=== PATIENT | female | born 1970 | race Caucasian/White ===

== ENCOUNTER → 2016-06-16 | Outpatient (CLI) | payer MEDICAID ==
[~2016-06-16] MED LIST: ADVIL200 MG PO; ALEVE; AMOXICILLIN 8751 TAB PO; ASPIRIN 81M81 MG/TA2 PO; B-12 100 MCG; BCP TD; BENADRYL; BUSPAR10 MG PO; CELEXA40 MG PO; CHERATUSSIN AC120 ML PO; CLARITIN 1010 MG/TAB PO; CLEOCIN HCL300 MG PO; COMBIVENT INH14.7 GM IH; EPA FISH OIL1000 MG PO; FLEXERIL 1010 MG/TAB PO; FLEXERIL10 MG PO; FLOVENT DI250 MCG/Ac IH; FORADIL AERO0.012 MG IH; GLUCOPHAGE500 MG/TAB PO; GUAIFEN AC 10120 ML PO; IBU400 MG PO; LEVAQUIN 750MG750 M1 PO; MULTIPLE VITAMI1 CAP PO; MVI; NAPROSYN500 MG PO; NIACIN1 TAB PO; NORCO 325 MG-51 TAB PO; ONE DAILY1 TA1 PO; PERCOCET 325 MG1 TA2 PO; PHENERGAN 25 TA25 MG PO; PREDNISONE20 MG PO; PRENATAL VITAMI1 TA5 PO; PRENATAL1 TA1 PO; PREVACID 15MG15 MG PO; PRILOTC PO; PROAIR HFA0.09 MG/AC IH; PROMETHAZINE V473 M2 PO; PROVENTIL0.09 MG/A1 IH; RT SPIRIVA18 MCG IH; SINGULAIR 110 MG/TAB PO; SUDAFED 30M30 MG/TAB PO; SUDAFED30 MG PO; SYMBICORT1 AE3 IH; TESSALON PERLE200 MG PO; TRAMADOL50 MG PO; TRIAMCINOLONE A15 G2 TP; TYLENOL 325MG325 MG PO; VENTOLIN0.09 MG IH; VITAMIN B122000 MCG PO; VITAMIN E1000 U/CAP PO; VITAMIN E200 I1 PO; ZITHROMAX TRI-500 MG PO; ZITHROMAX Z PA250 MG PO; ZOFRAN 4MG T4 MG/TAB PO; ZOLOFT 100MG100 MG PO; ZOLOFT 25MG25 MG PO; ZOLOFT 50MG50 MG PO; ZOLOFT100 MG PO; [UNRECOGNIZED DRUG - OTHER]
== END ==
LOC: COL.RAD 06-14 09:30 → COL.CARD 06-14 09:30 → COL.RAD 09:34
DX: M51.16 Intervertebral disc disorders with radiculopathy, lumbar region (principal)

== ENCOUNTER 2016-10-03 11:30 | Outpatient (RCR) | payer MEDICAID | END 2016-10-11 10:35 | disposition home or self-care (01) | LOC: WSPT 11:30 | DX: M54.5 Low back pain (principal) ==

== ENCOUNTER 2018-06-17 12:31 | Emergency (ER) | payer MEDICAID ==
[~2018-06-17] VITALS: Ht 160 cm; Wt 127.3 kg
[2018-06-17 13:14] LABS: BASO # 0.1 (0.0-0.2); BASO % 0.7 % (0.0-2.0); EOS # 0.3 (0.0-0.7); EOS % 3.3 % (0-4.0); GRAN # 4.7 (1.4-6.5); GRAN % 61.1 % (42.2-75.2); HEMATOCRIT 45.1 % (37.0-47.0); HEMOGLOBIN 14.9 g/dl (12.5-16.0); LYMPH # 2.2 (1.2-3.4); LYMPH % 28.4 % (20.0-51.0); MEAN CELL VOLUME 88 fl (80.0-100.0); MEAN CORPUSCULAR HEMOGLOBIN 29 pg (27.0-31.0); MEAN CORPUSCULAR HGB CONC 33 g/dl (33.0-37.0); MEAN PLATELET VOLUME 10.4 fl (7.4-10.4); MONO # 0.5 (0.1-0.6); MONO % 6.1 % (1.7-9.3); PLATELET COUNT 188 K/mm3 (130-400); RED BLOOD COUNT 5.13 M/mm3 (4.10-5.30); REDCELL DISTRIBUTION WIDTH-CV 12.7 % (11.5-14.5)
[2018-06-17 13:19] LABS: ALBUMIN 4.1 gm/dL (3.5-5.0); BILIRUBIN,TOTAL 0.3 mg/dL (0.0-1.0); CALCIUM 9.5 mg/dL (8.4-10.2); CREATININE, serum 0.62 mg/dL (0.52-1.25); POTASSIUM 4.1 mmol/L (3.4-5.0); TOTAL PROTEIN 7.5 gm/dL (6.4-8.2)
[2018-06-17 13:42] LABS: COLLECTION METHOD CLEAN CATCH
[2018-06-17 13:49] LABS: TSH w REFLEX 4.09 uIU/mL (0.465-4.680)
[2018-06-17 13:50] LABS: PH 6 (5-8); SQUAMOUS EPITHELIAL 0-2 /hpf; URINE APPEARANCE Clear; URINE BACTERIA None Seen /hpf; URINE BILIRUBIN Negative (NEGATIVE); URINE BLOOD Negative (NEGATIVE); URINE COLOR Yellow; URINE GLUCOSE Negative (NEGATIVE); URINE KETONE Negative (NEGATIVE); URINE LEUKOCYTE ESTERASE Negative (NEGATIVE); URINE NITRATE Negative (NEGATIVE); URINE PROTEIN(semi-quant) Negative (NEGATIVE); URINE RBC 0-2 /hpf; URINE UROBILINOGEN Negative (NEGATIVE); URINE WBC 0-2 /hpf
[2018-06-17 14:37] VITALS: BP 147/93; PULSE 78; TEMP 97.8
== END 2018-06-17 14:42 | disposition home or self-care (01) ==
LOC: COL.ER 12:31
PROVIDERS: Emergency Medicine
DX: R53.81 Other malaise (principal); E11.9 Type 2 diabetes mellitus without complications; Z90.49 Acquired absence of other specified parts of digestive tract; Z98.51 Tubal ligation status; Z98.890 Other specified postprocedural states; J45.909 Unspecified asthma, uncomplicated; Z79.84 Long term (current) use of oral hypoglycemic drugs
CPT/HCPCS: J7030

== ENCOUNTER 2018-06-26 14:35 | Emergency (ER) | payer MEDICAID ==
[~2018-06-26] VITALS: Ht 160 cm; Wt 130.9 kg
[2018-06-26 14:38] VITALS: TEMP 98.1
[2018-06-26 15:26] LABS: BASO % 0.5 % (0.0-2.0); EOS # 0.2 (0.0-0.7); EOS % 2.6 % (0-4.0); GRAN # 4.7 (1.4-6.5); LYMPH # 2.2 (1.2-3.4); LYMPH % 28.7 % (20.0-51.0); MEAN CELL VOLUME 89 fl (80.0-100.0); MEAN CORPUSCULAR HEMOGLOBIN 29 pg (27.0-31.0); MEAN CORPUSCULAR HGB CONC 33 g/dl (33.0-37.0); MEAN PLATELET VOLUME 10.8 fl (7.4-10.4); MONO # 0.5 (0.1-0.6); MONO % 6.8 % (1.7-9.3); PLATELET COUNT 170 K/mm3 (130-400); RED BLOOD COUNT 4.48 M/mm3 (4.10-5.30)
[2018-06-26 15:44] LABS: ALANINE AMINOTRANSFERASE 39 U/L (9-52); ALBUMIN 3.7 gm/dL (3.5-5.0); ALKALINE PHOSPHATASE 108 U/L (50-136); ANION GAP 6 mmol/L (7-16); AST,SGOT 32 U/L (15-37); BILIRUBIN,TOTAL 0.1 mg/dL (0.0-1.0); BLOOD UREA NITROGEN 25 mg/dL (7-17); C-REACTIVE PROTEIN 1.2 mg/dL (0.0-0.9); CARBON DIOXIDE 28 mmol/L (22-30); CHLORIDE 109 mmol/L (98-107); CREATININE, serum 0.82 mg/dL (0.52-1.25); GLUCOSE 99 mg/dL (74-106); POTASSIUM 4.1 mmol/L (3.4-5.0); SODIUM 142 mmol/L (137-145); TOTAL PROTEIN 6.7 gm/dL (6.4-8.2)
[2018-06-26 15:54] LABS: TROPONIN-I < 0.012 ng/mL (0.000-0.035)
[2018-06-26] MEDS ORDERED: CARAFATE 1GM1 G PO (16:13)
[2018-06-26 16:18] LABS: COLLECTION METHOD CLEAN CATCH
[2018-06-26 16:25] VITALS: BP 135/93; PULSE 68
[2018-06-26 16:26] LABS: MUCOUS Present /lpf; PH 5 (5-8); SQUAMOUS EPITHELIAL 0-2 /hpf; URINE APPEARANCE Clear; URINE BACTERIA None Seen /hpf; URINE BILIRUBIN Negative (NEGATIVE); URINE BLOOD Negative (NEGATIVE); URINE COLOR Yellow; URINE GLUCOSE Negative (NEGATIVE); URINE KETONE Negative (NEGATIVE); URINE LEUKOCYTE ESTERASE Negative (NEGATIVE); URINE NITRATE Negative (NEGATIVE); URINE PROTEIN(semi-quant) Negative (NEGATIVE); URINE RBC 0-2 /hpf; URINE UROBILINOGEN Negative (NEGATIVE)
== END 2018-06-26 16:25 | disposition home or self-care (01) ==
LOC: COL.ER 14:35
PROVIDERS: Physician Assistant
DX: K29.70 Gastritis, unspecified, without bleeding (principal); F32.9 Major depressive disorder, single episode, unspecified; E66.9 Obesity, unspecified; F17.210 Nicotine dependence, cigarettes, uncomplicated; Z79.84 Long term (current) use of oral hypoglycemic drugs; Z79.1 Long term (current) use of non-steroidal anti-inflammatories (NSAID); Z90.49 Acquired absence of other specified parts of digestive tract; Z98.51 Tubal ligation status; Z88.6 Allergy status to analgesic agent; Z68.43 Body mass index [BMI] 50.0-59.9, adult

== ENCOUNTER 2021-06-08 09:04 | Day surgery (SDC) | payer MEDICAID ==
[2021-06-08] VITALS (7 sets, daily range): BP systolic 111–135; BP diastolic 45–94; PULSE 71–80; TEMP 96.6–97.6
[~2021-06-08] VITALS: Ht 160 cm; Wt 124.6 kg
[~2021-06-08 09:04] MED LIST changes: +CARAFATE 1GM1 G PO
[2021-06-08] MEDS ORDERED: PROVENTIL0.09 MG/A1 IH (10:25)
[2021-06-08] MEDS ORDERED: TAMBOCOR50 MG PO (10:25)
[2021-06-08] MEDS ORDERED: PRIL40 PO (10:25)
[2021-06-08] MEDS ORDERED: TYLENOL 500MG500 MG PO (10:26)
[2021-06-08] MEDS ORDERED: CLARITIN 1010 MG/TAB PO (10:26)
[2021-06-08] MEDS ORDERED: EFFEXOR-XR150 MG PO (10:27)
[2021-06-08] MEDS ORDERED: WELLBUTRIN XL300 M1 PO (10:27)
[2021-06-08] MEDS ORDERED: FLONASE NASAL S16 GM NS (10:28)
[2021-06-08] MEDS ORDERED: MOBIC 7.5MG7.5 MG PO (10:28)
[2021-06-08] MEDS ORDERED: ASPIRIN 81M81 MG/TA2 PO (10:28)
[2021-06-08] MEDS ORDERED: TENORMIN 5050 MG/TAB PO (10:29)
[2021-06-08] MEDS ORDERED: K-DUR 10 MEQ T10 MEQ PO (10:29)
--- NOTE | 2021-06-08 10:59 | NUR ---
1059 Upon exit of endo procedure room, this RN asks if the pt would be interested in visiting with Sheet Cutter due to some items that were stated during the admission process. The pt declines in an apparent confident and assured manner. During the procedure, this RN had visited with Dr. Rose regarding the pt's statements preoperatively, and Dr. Rose encouraged this RN to ask the pt about a Sheet Cutter visit.
--- NOTE | 2021-06-08 13:35 | NUR ---
1100 Pt returns from endo procedure via cart and RN assist to [facility]. Pt ambulates from cart to recliner with RN assist. Monitors on and alarms set. Call light within reach. winery cellar hand, this RN, assuming care. Pt alert and oriented. Pt requests ice water and applesauce. Pt denies any pain or nausea. 1115 Pt taking food and drink well. No complications noted. 1140 Pt states that she's having a hard time breathing. This is new and different than her difficult breathing prior to this. It's also not related, she states, to her sore throat. Lung sounds are the same as preop. Pt requests use of inhaler. This RN visits with Dr. Rose and PRINCESS Hdez, who were present during her procedure, and they agree that use of her inhaler is approved. 1145 Pt takes two puffs of her inhaler. 1155 Pt states that she's breathing much better now. 1210 Pt states she's ready for discharge, and her ride has been called. 1230 Discharge instructions given to pt and daughter. All questions answered to their satisfaction. Handed to them are a thank you card and discharge information. 1240 Pt transferred to hospital entrance via wheelchair and this RN assist with daughter accompanying. However, the pt's ride is not present, and will not be here for quite some time. Pt, daughter, and this RN return to [facility] until pt's ride arrives. Pt requests to remain in wheelchair. 1250 Additional drinks brought for both pt and daughter. 1335 Pt's ride states that she's now here. Pt transferred out of the hospital via wheelchair and this RN assist to private vehicle driven by pt's friend.
== END 2021-06-08 13:35 | disposition home or self-care (01) ==
LOC: SDCO 09:04
DX: K21.00 Gastro-esophageal reflux disease with esophagitis, without bleeding (principal); K29.70 Gastritis, unspecified, without bleeding; K22.81 Esophageal polyp; J45.909 Unspecified asthma, uncomplicated; G47.33 Obstructive sleep apnea (adult) (pediatric); M54.9 Dorsalgia, unspecified; M19.90 Unspecified osteoarthritis, unspecified site; E66.01 Morbid (severe) obesity due to excess calories; E78.5 Hyperlipidemia, unspecified; G89.29 Other chronic pain; F32.A Depression, unspecified; Z79.82 Long term (current) use of aspirin; Z79.899 Other long term (current) drug therapy; Z90.49 Acquired absence of other specified parts of digestive tract; Z87.891 Personal history of nicotine dependence
CPT/HCPCS: J2704; J7120